=== PATIENT | female | born 1955 | race Caucasian/White ===

== ENCOUNTER 2016-11-26 16:22 | Emergency (ER) | payer BC ==
[2016-11-26] MEDS ORDERED: NS 0.9% 1000 ML* 1,000 ML IV ONE (16:49)
[2016-11-26] MEDS ORDERED: Ondansetron INJ* 2 MG/ML VIAL IV ONE ×2 (16:49→18:29)
[2016-11-26 17:06] LABS: Hematocrit 45 % (35-47); Hemoglobin 15.1 g/dl (12.0-16.0); Mean Corpuscular HGB Conc 34 g/dl (31-36); Mean Corpuscular Hemoglobin 32 pg (27-31); Mean Corpuscular Volume 94 fL (80-97); Mean Platelet Volume 8 um3 (7.4-10.4); Red Cell Distribution Width 13 % (10.5-15); White Blood Count 7.5 10^3/ul (3.5-10.8)
[2016-11-26 17:20] LABS: Albumin 4.6 g/dL (3.2-5.2); C Reactive Protein 1.86 mg/L (< 5.00); Calcium 10.1 mg/dL (8.6-10.3); EGFR African American 120.9 (>60); Globulin 3.6 g/dL (2-4); Magnesium 1.7 mg/dL (1.9-2.7); Potassium 3.4 mmol/L (3.5-5.0); Total Bilirubin 0.7 mg/dL (0.2-1.0); Total Protein 8.2 g/dL (6.4-8.9)
[2016-11-26 17:21] LABS: Troponin I 0.01 ng/mL (<0.04)
[2016-11-26] MEDS ORDERED: Iohexol 300* (CONTRAST) 10 ML SDV IV ONE (17:23)
[2016-11-26] MEDS ORDERED: Magnesium Oxide TAB* 400 MG PO ONE (17:48)
--- NOTE | 2016-11-26 18:05 | RAD ---
CLINICAL HISTORY: Diffuse abdominal pain COMPARISON: None TECHNIQUE: Multiple contiguous axial CT scans were obtained of the abdomen and pelvis after the administration of intravenous contrast. Coronal and sagittal multiplanar reformations are submitted for review. Oral contrast was administered. Delayed images were obtained through the abdomen and pelvis. FINDINGS: LUNG BASES: The lung bases are clear. LIVER: On axial image 28, there is 2.7 mm low-attenuation lesion of the right lobe of liver. This is adjacent to the ligamentum teres. BILE DUCTS: There is no intrahepatic or extrahepatic biliary dilatation. GALLBLADDER: The gallbladder is normal, without pericholecystic inflammatory change. PANCREAS: The pancreas is normal, without mass or ductal dilatation. SPLEEN: Normal in size and appearance. UPPER GI TRACT: Evaluation of the gastrointestinal tract is limited by incomplete gastric distention. The upper GI tract is unremarkable. SMALL BOWEL AND MESENTERY: The small bowel is normal in contour, course, and caliber. There is no obstruction or dilatation. COLON: The colon is decompressed. There is mild diffuse mucosal thickening of the colon ADRENALS: Normal bilaterally. KIDNEYS: The kidneys are normal in shape, size, contour, and axis. There is no hydronephrosis or nephrolithiasis. BLADDER: The bladder is incompletely distended but is grossly normal. PELVIC ORGANS: There is prominence of the vasculature along the broad ligaments bilaterally with enlargement of the gonadal veins AORTA: There is calcific atherosclerotic disease of the abdominal aorta and its branches, without aneurysmal dilatation IVC: Unremarkable LYMPH NODES: There is no lymphadenopathy by size criteria. ABDOMINAL WALL: There is no evidence for abdominal wall hernia. BONES AND SOFT TISSUES: There are mild diffuse degenerative changes. OTHER: None IMPRESSION: 1. THE COLON IS DIFFUSELY DECOMPRESSED. THERE IS DIFFUSE MUCOSAL THICKENING OF THE COLON, WHICH MAY INDICATE COLITIS, THOUGH THIS MAY BE AN ARTIFACT OF INCOMPLETE DISTENTION. 2. PROMINENCE OF THE VASCULATURE ALONG THE UTERUS BILATERALLY, NONSPECIFIC BUT SUGGESTIVE OF PELVIC CONGESTION SYNDROME IN THE CORRECT CLINICAL SETTING. 3. THERE IS LOW-ATTENUATION LESION OF THE RIGHT LOBE OF LIVER. WHILE THIS MAY REPRESENT FOCAL FATTY INFILTRATION, LIMITING APPEARANCE IS SOMEWHAT ATYPICAL. RECOMMEND CONSIDERATION OF CONTRAST-ENHANCED MRI OF THE ABDOMEN, OR ALTERNATIVELY MULTIPHASE LIVER PROTOCOL CONTRAST-ENHANCED CT OF THE ABDOMEN IN THE NONACUTE SETTING. MRI IS FAVORED. 4. ATHEROSCLEROSIS
[2016-11-26] MEDS ORDERED: Ondansetron TAB* 4 MG PO ONE (18:37)
[2016-11-26] MEDS ORDERED: Famotidine TAB* 20 MG PO ONE (18:37)
--- NOTE | 2016-11-26 18:47 | ED ---
Romario Roberto Billy, scribed for Eern Laughlin MD on 11/26/16 at 1644 . Abdominal Pain/Female - HPI Summary HPI Summary: Patient is a 61 year-old female coming to [facility] for evaluation of diffuse abdominal pain as well as nausea, vomiting, and diarrhea since yesterday. She denies any similar previous episodes of her current complaint. Nothing makes her pain better or worse. - History of Current Complaint Chief Complaint: EDNauseaVomitDiarrh Stated Complaint: N,V,D, COLD SWEETS Time Seen by Provider: 11/26/16 16:40 Hx Obtained From: Patient Onset/Duration: Gradual Onset Timing: Constant Severity Initially: Moderate Severity Currently: Moderate Pain Intensity: 6 Pain Scale Used: 0-10 Numeric Location: Diffuse Aggravating Factor(s): Nothing Alleviating Factor(s): Nothing Associated Signs and Symptoms: Positive: Nausea, Vomiting, Diarrhea Allergies/Adverse Reactions: Allergies Allergy/AdvReac Type Severity Reaction Status Date / Time No Known Allergies Allergy Verified 11/26/16 16:24 PMH/Surg Hx/FS Hx/Imm Hx Sensory History: Denies: Hx Legally Blind EENT History: Denies: Hx Deafness Infectious Disease History: No Infectious Disease History: Denies: Traveled Outside the [place] in Last 30 Days - Family History Known Family History: Positive: Diabetes - Social History Alcohol Use: Daily Alcohol Amount: 1 glass of wine Substance Use Type: Reports: None Smoking Status (MU): Light Every Day Tobacco Smoker Review of Systems Negative: Fever Positive: Abdominal Pain, Vomiting, Diarrhea, Nausea All Other Systems Reviewed And Are Negative: Yes Physical Exam - Summary Physical Exam Summary: VITAL SIGNS: Reviewed. GENERAL: Patient is a well-developed and nourished female who is lying comfortable in the stretcher. Patient is not in any acute respiratory distress. HEAD AND FACE: Normocephalic and atraumatic. EYES: PERRLA, EOMI x 2, No injected conjunctiva. EARS: Hearing grossly intact. Ear canals and tympanic membranes are WNL. MOUTH: Oropharynx within normal limits. NECK: Supple, trachea is midline, no adenopathy, no JVD. CHEST: Symmetric, no tenderness at palpation LUNGS: Clear to auscultation bilaterally. No wheezing or crackles. CVS: RRR, S1 and S2 present, no murmurs or gallops appreciated. ABDOMEN: Soft. Tender to the RUQ, epigastrium, and LUQ. No signs of distention. Positive bowel sounds. No rebound no guarding. Positive pulsating mass. EXTREMITIES: FROM in all major joints, no edema, no cyanosis or clubbing. NEURO: Alert and oriented x 3. No acute neurological deficits. Speech is normal. SKIN: Dry and warm Triage Information Reviewed: Yes Vital Signs On Initial Exam: Initial Vitals Temp Pulse Resp BP Pulse Ox 98.9 F 101 18 147/85 100 11/26/16 16:24 11/26/16 16:24 11/26/16 16:24 11/26/16 16:24 11/26/16 16:24 Vital Signs Reviewed: Yes Diagnostics - Vital Signs Vital Signs Temp Pulse Resp BP Pulse Ox 11/26/16 16:24 98.9 F 101 18 147/85 100 - Laboratory Lab Results: Lab Results 11/26/16 11/26/16 11/26/16 Range/Units 16:50 16:50 16:50 WBC 7.5 (3.5-10.8) 10^3/ul RBC 4.80 (4.0-5.4) 10^6/ul Hgb 15.1 (12.0-16.0) g/dl Hct 45 (35-47) % MCV 94 (80-97) fL MCH 32 H (27-31) pg MCHC 34 (31-36) g/dl RDW 13 (10.5-15) % Plt Count 246 (150-450) 10^3/ul MPV 8 (7.4-10.4) um3 Neut % (Auto) 72.7 (38-83) % Lymph % (Auto) 18.1 L (25-47) % [place] % (Auto) 8.7 (1-9) % Eos % (Auto) 0 (0-6) % Baso % (Auto) 0.5 (0-2) % Absolute Neuts (auto) 5.4 (1.5-7.7) 10^3/ul Absolute Lymphs (auto) 1.4 (1.0-4.8) 10^3/ul Absolute Monos (auto) 0.7 (0-0.8) 10^3/ul Absolute Eos (auto) 0 (0-0.6) 10^3/ul Absolute Basos (auto) 0 (0-0.2) 10^3/ul Absolute Nucleated RBC 0 10^3/ul Nucleated RBC % 0 Sodium 138 (133-145) mmol/L Potassium 3.4 L (3.5-5.0) mmol/L Chloride 102 (101-111) mmol/L Carbon Dioxide 18 L (22-32) mmol/L Anion Gap 18 H (2-11) mmol/L BUN 16 (6-24) mg/dL Creatinine 0.64 (0.51-0.95) mg/dL Est GFR ( Amer) 120.9 (>60) Est GFR (Non-Af Amer) 94.0 (>60) BUN/Creatinine Ratio 25.0 H (8-20) Glucose 123 H (70-100) mg/dL Lactic Acid 1.5 (0.5-2.0) mmol/L Calcium 10.1 (8.6-10.3) mg/dL Magnesium 1.7 L (1.9-2.7) mg/dL Total Bilirubin 0.70 (0.2-1.0) mg/dL AST 22 (13-39) U/L ALT 16 (7-52) U/L Alkaline Phosphatase 63 (34-104) U/L Troponin I 0.01 (<0.04) ng/mL C-Reactive Protein 1.86 (< 5.00) mg/L Total Protein 8.2 (6.4-8.9) g/dL Albumin 4.6 (3.2-5.2) g/dL Globulin 3.6 (2-4) g/dL Albumin/Globulin Ratio 1.3 (1-3) Lipase 12 (11.0-82.0) U/L Result Diagrams: 11/26/16 16:50 11/26/16 16:50 Lab Statement: Any lab studies that have been ordered have been reviewed, and results considered in the medical decision making process. - CT abd/pel CT Interpretation Completed By: Radiologist - 1. THE COLON IS DIFFUSELY DECOMPRESSED. THERE IS DIFFUSE MUCOSAL THICKENING OF THE COLON, WHICH MAY INDICATE COLITIS, THOUGH THIS MAY BE AN ARTIFACT OF INCOMPLETE DISTENTION. 2. PROMINENCE OF THE VASCULATURE ALONG THE UTERUS BILATERALLY, NONSPECIFIC BUT SUGGESTIVE OF PELVIC CONGESTION SYNDROME IN THE CORRECT CLINICAL SETTING. 3. THERE IS LOW-ATTENUATION LESION OF THE RIGHT LOBE OF LIVER. WHILE THIS MAY REPRESENT FOCAL FATTY INFILTRATION, LIMITING APPEARANCE IS SOMEWHAT ATYPICAL. RECOMMEND CONSIDERATION OF CONTRAST-ENHANCED MRI OF THE ABDOMEN, OR ALTERNATIVELY MULTIPHASE LIVER PROTOCOL CONTRAST-ENHANCED CT OF THE ABDOMEN IN THE NONACUTE SETTING. MRI IS FAVORED. 4. ATHEROSCLEROSIS - EKG 1834 EKG Interpretation: NSR 72 bpm, no STEMI Re-Evaluation - Re-Evaluation First Eval Re-Evaluation Time: 18:29 Change: Improved Abdominal Pain Fem Course/Dx - Course Course Of Treatment: Patient is a 61 year-old female coming to [facility] for evaluation of diffuse abdominal pain as well as nausea, vomiting, and diarrhea since yesterday. She denies any similar previous episodes of her current complaint. Nothing makes her pain better or worse. Test results WNL except for potassium of 3.4 and magnesium of 1.7. The patient was given IV fluids, Zofran for nausea and vomiting, and potassium chloride and magnesium. I ordered a CT abd/pel with contrast, however the patient refused the PO contrast. After the patient was hydrated and given Zofran, the symptoms have resolved. She is asymptomatic and tolerating PO without nausea or vomiting. Therefore she will be discharged home to follow up with PCP. I discussed all the findings and test results with the patient. Patient was instructed to return to the emergency room immediately if any of the symptoms return or worsens. They were explained the possibility of an early abdominal pathology which was not detected at this time despite the physical exam and testing. They understand and agree. Abdominal exam before discharge: Soft, NT. No signs of distention. BS present. No rebound no guarding, and no masses palpated. Patient is alert and oriented and hemodynamically stable. Patient is to follow up with primary care physician in the next 2 to 3 days. Patient agree and understands. - Diagnoses Differential Diagnosis: Positive: Constipation, Diverticulitis, Irritable Bowel Syndrome, Urinary Tract Infection Provider Diagnoses: Abdominal pain, Colitis, Nausea vomiting and diarrhea Discharge - Discharge Plan Condition: Stable Disposition: HOME Prescriptions: Famotidine TAB* [Pepcid 20 MG TAB*] 20 mg PO BID #20 tab Ondansetron TAB* [Zofran 4 MG Tab*] 4 mg PO Q6H PRN #10 tab PRN Reason: Vomiting Patient Education Materials: Acute Nausea and Vomiting (ED), Abdominal Pain (ED ), Colitis (ED) Referrals: Zoey Tenorio MD [Primary Care Provider] - The documentation as recorded by the Romario chandler Billy accurately reflects the service I personally performed and the decisions made by me, Eren Laughlin MD.
[2016-11-26 18:51] LABS: Urine Bacteria Absent (Absent); Urine Bilirubin Negative (Negative); Urine Glucose 1+(50 mg/dL) (Negative); Urine Nitrite Negative (Negative)
[2016-11-26 19:41] VITALS: BP 147/76
== END 2016-11-26 19:39 | disposition home or self-care (01) ==
LOC: ED 16:22
DX: K52.9 Noninfective gastroenteritis and colitis, unspecified (principal); R10.9 Unspecified abdominal pain; F17.200 Nicotine dependence, unspecified, uncomplicated
CPT/HCPCS: 36415; 74177; 80053; 81003; 81015; 83605; 83690; 83735; 84484; 85025; 86140; 87086; 93005; 96374; 96376; 99284; A9270-GY; J2405; Q9967

== ENCOUNTER 2016-12-01 15:58 | Emergency (ER) | payer BC ==
[2016-12-01] MEDS ORDERED: NS 0.9% 1000 ML* 1,000 ML IV ONE (17:05)
[2016-12-01] MEDS ORDERED: Metoclopramide IV* 5 MG/ML 2 ML VIAL IV ONE (17:05)
[2016-12-01 17:31] LABS: Hematocrit 43 % (35-47); Hemoglobin 14.9 g/dl (12.0-16.0); Mean Corpuscular HGB Conc 34 g/dl (31-36); Mean Corpuscular Hemoglobin 32 pg (27-31); Mean Corpuscular Volume 94 fL (80-97); Mean Platelet Volume 9 um3 (7.4-10.4); Red Blood Count 4.63 10^6/ul (4.0-5.4); Red Cell Distribution Width 13 % (10.5-15); White Blood Count 9.5 10^3/ul (3.5-10.8)
[2016-12-01 17:34] LABS: Urine Bacteria Absent (Absent); Urine Bilirubin Negative (Negative); Urine Glucose Negative (Negative); Urine Nitrite Negative (Negative)
[2016-12-01 18:13] LABS: Troponin I 0.01 ng/mL (<0.04)
[2016-12-01] MEDS ORDERED: Sucralfate TAB* 1 GM PO ONE (18:37)
--- NOTE | 2016-12-01 18:54 | ED ---
Dread Roberto Benjamin, scribed for Hank Batres MD on 12/01/16 at 1656 . Abdominal Pain/Female - HPI Summary HPI Summary: 61yo female c/o N/V with severe abdominal pain. Pt was recently dxed with colitis. - History of Current Complaint Chief Complaint: EDAbdPain Stated Complaint: SEVERE STOMACH PAIN Time Seen by Provider: 12/01/16 16:47 Pain Intensity: 8 Allergies/Adverse Reactions: Allergies Allergy/AdvReac Type Severity Reaction Status Date / Time No Known Allergies Allergy Verified 11/26/16 16:24 PMH/Surg Hx/FS Hx/Imm Hx Sensory History: Denies: Hx Legally Blind, Hx Deafness Opthamlomology History: Denies: Hx Legally Blind - Surgical History Surgery Procedure, Year, and Place: TUBAL LIGATION Infectious Disease History: No Infectious Disease History: Denies: Traveled Outside the [place] in Last 30 Days - Family History Known Family History: Positive: Diabetes - Social History Alcohol Use: Daily Alcohol Amount: 1 glass of wine Substance Use Type: Reports: None Smoking Status (MU): Light Every Day Tobacco Smoker Review of Systems All Other Systems Reviewed And Are Negative: Yes Physical Exam Triage Information Reviewed: Yes Vital Signs On Initial Exam: Initial Vitals Temp Pulse Resp BP Pulse Ox 99.3 F 90 20 142/62 100 12/01/16 16:02 12/01/16 16:02 12/01/16 16:02 12/01/16 16:02 12/01/16 16:02 Vital Signs Reviewed: Yes Appearance: Positive: Well-Appearing, No Pain Distress, Well-Nourished Skin: Positive: Warm, Skin Color Reflects Adequate Perfusion, Dry Head/Face: Positive: Normal Head/Face Inspection Eyes: Positive: Normal ENT: Positive: Normal ENT inspection Neck: Positive: Supple, Nontender Respiratory/Lung Sounds: Positive: Clear to Auscultation, Breath Sounds Present Cardiovascular: Positive: RRR Abdomen Description: Positive: Soft, Other: - mildly tender at periumbilical Bowel Sounds: Positive: Present Musculoskeletal: Positive: Normal Neurological: Positive: Normal Psychiatric: Positive: Affect/Mood Appropriate Diagnostics - Vital Signs Vital Signs Temp Pulse Resp BP Pulse Ox 12/01/16 16:06 100.1 F 77 20 142/62 100 12/01/16 16:02 99.3 F 90 20 142/62 100 - Laboratory Lab Results: Lab Results 12/01/16 12/01/16 12/01/16 Range/Units 17:15 17:15 17:15 WBC 9.5 (3.5-10.8) 10^3/ul RBC 4.63 (4.0-5.4) 10^6/ul Hgb 14.9 (12.0-16.0) g/dl Hct 43 (35-47) % MCV 94 (80-97) fL MCH 32 H (27-31) pg MCHC 34 (31-36) g/dl RDW 13 (10.5-15) % Plt Count 241 (150-450) 10^3/ul MPV 9 (7.4-10.4) um3 Neut % (Auto) 75.6 (38-83) % Lymph % (Auto) 13.9 L (25-47) % [place] % (Auto) 9.9 H (1-9) % Eos % (Auto) 0.2 (0-6) % Baso % (Auto) 0.4 (0-2) % Absolute Neuts (auto) 7.2 (1.5-7.7) 10^3/ul Absolute Lymphs (auto) 1.3 (1.0-4.8) 10^3/ul Absolute Monos (auto) 0.9 H (0-0.8) 10^3/ul Absolute Eos (auto) 0 (0-0.6) 10^3/ul Absolute Basos (auto) 0 (0-0.2) 10^3/ul Absolute Nucleated RBC 0 10^3/ul Nucleated RBC % 0 Sodium Pending Potassium Pending Chloride Pending Carbon Dioxide Pending Anion Gap Pending BUN Pending Creatinine Pending Est GFR ( Amer) Pending Est GFR (Non-Af Amer) Pending BUN/Creatinine Ratio Pending Glucose Pending Lactic Acid (0.5-2.0) mmol/L Calcium Pending Total Bilirubin Pending AST Pending ALT Pending Alkaline Phosphatase Pending Troponin I 0.01 (<0.04) ng/mL C-Reactive Protein Pending Total Protein Pending Albumin Pending Globulin Pending Albumin/Globulin Ratio Pending Lipase Pending Urine Color Yellow Urine Appearance Cloudy Urine pH 6.0 (5-9) Ur Specific [place] 1.023 (1.010-1.030) Urine Protein 1+(30 mg/dl) H (Negative) Urine Ketones 2+ H (Negative) Urine Blood 1+ H (Negative) Urine Nitrate Negative (Negative) Urine Bilirubin Negative (Negative) Urine Urobilinogen Positive H (Negative) Ur Leukocyte Esterase Trace H (Negative) Urine WBC (Auto) Trace(0-5/hpf) (Absent) Urine RBC (Auto) 2+(6-10/hpf) H (Absent) Ur Squamous Epith Cells Present H (Absent) Urine Bacteria Absent (Absent) Urine Glucose Negative (Negative) 12/01/16 Range/Units 17:15 WBC (3.5-10.8) 10^3/ul RBC (4.0-5.4) 10^6/ul Hgb (12.0-16.0) g/dl Hct (35-47) % MCV (80-97) fL MCH (27-31) pg MCHC (31-36) g/dl RDW (10.5-15) % Plt Count (150-450) 10^3/ul MPV (7.4-10.4) um3 Neut % (Auto) (38-83) % Lymph % (Auto) (25-47) % [place] % (Auto) (1-9) % Eos % (Auto) (0-6) % Baso % (Auto) (0-2) % Absolute Neuts (auto) (1.5-7.7) 10^3/ul Absolute Lymphs (auto) (1.0-4.8) 10^3/ul Absolute Monos (auto) (0-0.8) 10^3/ul Absolute Eos (auto) (0-0.6) 10^3/ul Absolute Basos (auto) (0-0.2) 10^3/ul Absolute Nucleated RBC 10^3/ul Nucleated RBC % Sodium Potassium Chloride Carbon Dioxide Anion Gap BUN Creatinine Est GFR ( Amer) Est GFR (Non-Af Amer) BUN/Creatinine Ratio Glucose Lactic Acid 0.9 (0.5-2.0) mmol/L Calcium Total Bilirubin AST ALT Alkaline Phosphatase Troponin I (<0.04) ng/mL C-Reactive Protein Total Protein Albumin Globulin Albumin/Globulin Ratio Lipase Urine Color Urine Appearance Urine pH (5-9) Ur Specific [place] (1.010-1.030) Urine Protein (Negative) Urine Ketones (Negative) Urine Blood (Negative) Urine Nitrate (Negative) Urine Bilirubin (Negative) Urine Urobilinogen (Negative) Ur Leukocyte Esterase (Negative) Urine WBC (Auto) (Absent) Urine RBC (Auto) (Absent) Ur Squamous Epith Cells (Absent) Urine Bacteria (Absent) Urine Glucose (Negative) Result Diagrams: 12/01/16 17:15 12/01/16 17:15 Lab Statement: Any lab studies that have been ordered have been reviewed, and results considered in the medical decision making process. Abdominal Pain Fem Course/Dx - Course Course Of Treatment: Ms. Zimmerman has had continued abdominal pain and N/V today and is not keeping anything down. I am treating her symptomatically and waiting for her labs. Her nausea is improved and she is C/O burning epigastric pain. - Diagnoses Provider Diagnoses: Epigastric abdominal pain - Provider Notifications Discussed Care Of Patient With: Dr. Garcia at change of shift Discharge - Discharge Plan Condition: Stable Disposition: OTHER Discharge Disposition Comment: change of shift Prescriptions: Metoclopramide TAB* [Reglan TAB*] 5 mg PO Q8H PRN #20 tab PRN Reason: Nausea Sucralfate TAB* [Carafate*] 1 gm PO QID #40 tab Patient Education Materials: Abdominal Pain (ED) Referrals: Zoey Tenorio MD [Primary Care Provider] - The documentation as recorded by the Dread chandler Benjamin accurately reflects the service I personally performed and the decisions made by me, Hank Batres MD.
[2016-12-01 19:15] LABS: C Reactive Protein 20.42 mg/L (< 5.00); Calcium 9.6 mg/dL (8.6-10.3); EGFR African American 160.8 (>60); Globulin 3.3 g/dL (2-4); Potassium 3.1 mmol/L (3.5-5.0); Total Bilirubin 0.8 mg/dL (0.2-1.0); Total Protein 7.3 g/dL (6.4-8.9)
[2016-12-01] MEDS ORDERED: Potassium Chlor TAB* 20 MEQ TAB.ER PO ONE (19:35)
[2016-12-01] MEDS ORDERED: Ondansetron ODT TAB* 4 MG PO ONE (20:03)
[2016-12-01] MEDS ORDERED: Ondansetron INJ* 2 MG/ML VIAL ONE (20:04)
[2016-12-01] MEDS ORDERED: Ondansetron INJ* 2 MG/ML VIAL IV ONE (20:10)
--- NOTE | 2016-12-01 21:09 | ED ---
Nieves Roberto Rebecca, scribed for Akil Garcia on 12/01/16 at 2008 . Progress - Progress Note Progress Note: Pt was signed out from Dr. Batres. Her labwork was normal, except that potassium required replacement. Pt received potassium and will be D/C to home with a Dx of epigastric abdominal pain, as was planned. Re-Evaluation - Re-Evaluation First Eval Re-Evaluation Time: 21:02 Change: Improved Comment: Discussed reuslts with pt and that she is able to be D/C to home. Course/Dx - Diagnoses Provider Diagnoses: Epigastric abdominal pain The documentation as recorded by the Nieves chandler Rebecca accurately reflects the service I personally performed and the decisions made by , Akil Garcia.
[2016-12-01 21:26] VITALS: BP 117/55
== END 2016-12-01 21:26 | disposition home or self-care (01) ==
LOC: ED 15:58
DX: R10.13 Epigastric pain (principal); R11.2 Nausea with vomiting, unspecified; F17.210 Nicotine dependence, cigarettes, uncomplicated
CPT/HCPCS: 36415; 80053; 81003; 81015; 83605; 83690; 84484; 85025; 86140; 87086; 96374; 99282; A9270-GY; J2405